=== PATIENT | female | born 1950 | race Caucasian/White ===

== ENCOUNTER 2024-10-05 14:51 | Outpatient (CLI) | payer MEDICARE, SELFPAY ==
--- NOTE | ~2024-10-05 | CT_ITS ---
EXAMINATION: CT abdomen pelvis wo/w con DATE: 10/05/2024 15:48 INDICATION: Hematuria. TECHNIQUE: Computed tomography (CT) of the abdomen and pelvis was performed without and with intraven ous contrast using a total of 130 mL Omnipaque-350 intravenous contrast with a double-bolus technique for simultaneous opacification of the renal parenchyma and renal collecting system. Automated exposu re control and iterative reconstruction technique were employed. The dose-length product was 1130.88 mGy-cm. COMPARISON: None FINDINGS: The visualized portions of lung bases demonstrate mild atelectasis. There is mild bronchiectasis bila terally. No pleural effusion. The heart size is normal. No pericardial effusion. There are coronary a rtery calcifications. There is a 3.9 cm cyst in the liver. The gallbladder, spleen, pancreas, and adr enal glands are normal. There is no urolithiasis. There are cysts in the kidneys measuring up to 9 mm on the right. The ureters are well opacified and are normal. There is diverticulosis of the colon wi thout evidence of diverticulitis. There are no dilated loops of bowel. The appendix is normal. There are no pathologically enlarged lymph nodes. There is no free intraperitoneal fluid. The periuterine v eins and ovarian veins are enlarged, consistent with pelvic venous insufficiency. There is thoracolum bar levoscoliosis and moderate spondylosis. IMPRESSION: 1. No etiology for hematuria. Reviewed, dictated and finalized at location A. H [facility]ER
[2024-10-05 15:35] LABS: Estimated Glomerular Filt Rate > 60
== END 2024-10-05 14:52 | disposition home or self-care (01) ==
PROVIDERS: PCP Family Medicine; Visit Provider Urology
DX: R31.9 Hematuria, unspecified (principal)
CPT/HCPCS: 74178; Q9967